=== PATIENT | male | born 1950 | race Caucasian/White ===

== ENCOUNTER → 2016-07-31 | Outpatient (CLI) | payer MEDICARE, OTHER | END | disposition home or self-care (01) | LOC: EDSTATUS 07:59 → LAB.O 16:00 → GT 16:00 | PROVIDERS: ATTEND Physical Medicine & Rehabilitation | DX: I50.9 Heart failure, unspecified (principal); I10 Essential (primary) hypertension; E11.9 Type 2 diabetes mellitus without complications; E63.9 Nutritional deficiency, unspecified; N19 Unspecified kidney failure ==

== ENCOUNTER → 2016-08-16 | Outpatient (CLI) | payer MEDICARE, OTHER | END | disposition home or self-care (01) | LOC: GMAJ 07:36 → GT 07:36 → EDSTATUS 14:33 | PROVIDERS: ATTEND Family Medicine | DX: E11.9 Type 2 diabetes mellitus without complications (principal); I50.9 Heart failure, unspecified; I69.898 Other sequelae of other cerebrovascular disease; I10 Essential (primary) hypertension ==

== ENCOUNTER → 2016-08-23 | Outpatient (CLI) | payer MEDICARE | END | disposition home or self-care (01) | LOC: GT 09:02 | PROVIDERS: ATTEND Family Medicine | DX: Z79.899 Other long term (current) drug therapy (principal) ==

== ENCOUNTER → 2016-08-27 | Outpatient (CLI) | payer MEDICARE | END | disposition home or self-care (01) | LOC: GMAJ 16:33 | PROVIDERS: ATTEND Family Medicine | DX: L03.311 Cellulitis of abdominal wall (principal); L02.93 Carbuncle, unspecified ==

== ENCOUNTER → 2016-10-11 | Outpatient (CLI) | payer MEDICARE | END | disposition home or self-care (01) | LOC: GT 07:41 | PROVIDERS: ATTEND Family Medicine | DX: E11.9 Type 2 diabetes mellitus without complications (principal); I10 Essential (primary) hypertension; I50.9 Heart failure, unspecified; I69.898 Other sequelae of other cerebrovascular disease ==

== ENCOUNTER → 2016-11-15 | Outpatient (CLI) | payer MEDICARE | END | disposition home or self-care (01) | LOC: GMAJ 08:18 | PROVIDERS: ATTEND Family Medicine | DX: I10 Essential (primary) hypertension (principal); E11.9 Type 2 diabetes mellitus without complications; I69.898 Other sequelae of other cerebrovascular disease; E56.8 Deficiency of other vitamins; E63.9 Nutritional deficiency, unspecified ==

== ENCOUNTER 2016-12-25 17:12 | Inpatient (IN) | payer MEDICARE ==
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
[2016-12-25] MEDS ORDERED: VANCOMYCIN HCL INJ 1,000 MG, VANCOMYCIN HCL INJ 250 MG in SODIUM CHLORIDE 0.9% 250ML 25... IVPB ONE (17:42)
[2016-12-25] MEDS ORDERED: VANCOMYCIN HCL INJ 500 MG VIAL ONE (18:04)
[2016-12-25] MEDS ORDERED: VANCOMYCIN HCL INJ 1,000 MG VIAL IVPB ONE (18:04)
[2016-12-25] MEDS ORDERED: SODIUM CHLORIDE 0.9% 250ML 250 ML ONE (18:05)
--- NOTE | 2016-12-25 18:13 | HP ---
SUPERVISING PHYSICIAN: Brendon Charles M.D. CHIEF COMPLAINT: Right foot and lower leg cellulitis. HISTORY OF PRESENT ILLNESS: Mr. Leslie is a 66 year-old male patient that resides at [facility]. He has a longstanding history of diabetes and past hospitalizations for cellulitis of the right lower extremity with a chronic ulcer to the right heel. He was seen in the clinic at [facility] today and referred to the Emergency Department secondary to worsening edema to the right lower extremity. In the Emergency Department, it was noted that he had edema up to just below the knee on the right leg with petechial hemorrhaging and erythema with the ulcer showing a chronic non-healing ulcer. He was last hospitalized for worsening cellulitis of the right leg in May of 2016. In the Emergency Room today, laboratory showed he had a normal white count of 8.1 with no left shift noted. Chemistries showed an elevated BUN and creatinine with creatinine 3.16. The patient does have a history of chronic renal failure. Given the extent of the cellulitis and the patient's underlying comorbidities and diabetes, Dr. Dejesus requested the patient be admitted for continuation of treatment with parenteral antibiotics and further wound management. The patient was admitted from the E. . to the Medical/Surgical floor in stable condition. PAST MEDICAL HISTORY: 1. Diabetes mellitus type 2 on oral therapy. 2. Chronic renal failure. 3. History of chronic non-healing ulcer to the right lower extremity with previous hospitalizations for worsening cellulitis. Last hospitalization in May of 2016. 4. Hypertension. 5. Coronary artery disease. 6. Congestive heart failure, undetermined etiology with no current echocardiogram available at time of admission. 7. History of gout. 8. Depression and anxiety. 9. Benign prostatic hypertrophy. 10. Past history of cerebrovascular accident. PAST SURGICAL HISTORY: Unknown as the patient has a poor recall of medical history. CURRENT MEDICATIONS: 1. Flomax 0.4 mg at bedtime. 2. Zoloft 25 mg daily. 3. Nutritional supplement Arginaid 1 packet twice daily. 4. Xanthene 0.005% ophthalmic drops 1 both eyes at bedtime. 5. B12 injections 1,000 mg monthly. 6. Plavix 75 mg daily. 7. Vitamin C 500 mg daily. 8. Metolazone 5 mg Friday, Friday and Friday. 9. Lisinopril 40 mg daily. 10. Zantac 75 mg daily. 11. Lactose 3,000 units 3 times a day. 12. Neurontin 400 mg 3 times a day. 13. Carvedilol 25 mg twice daily. 14. Multivitamin adult 1 tablet daily. 15. Lasix 80 mg daily. 16. Calcitriol 0.25 mcg daily. 17. Allopurinol 300 mg daily. 18. Glucotrol XL 5 mg daily. ALLERGIES: NSAIDs. FAMILY HISTORY: Unknown. SOCIAL HISTORY: The patient previously did smoke but has stopped for many years. He denies any alcohol or illicit drug use. He resides at [facility]. REVIEW OF SYSTEMS: Difficult to obtain secondary to the patient's inability to full recall his history. CONSTITUTIONAL: He denies any fever or chills. HEENT: Denies any headaches or syncopal episodes. RESPIRATORY: Denies any shortness of breath, cough. Does note that he has some difficulty swallowing at times, but denies any problems with aspiration. HEART: Denies any palpitations, syncopal episodes, chest pains, worsening shortness of breath. ABDOMEN: Denies any nausea, vomiting or constipation, or any other bowel habit changes. GENITOURINARY: Notes that he does have some incontinence but denies any dysuria , hematuria or other urinary symptoms. INTEGUMENT: Reports that he has a chronic rash irritation to his buttock secondary to his incontinence and sitting in a wheelchair most of the day, as well as noted on History of Present Illness, the right lower extremity cellulitis with the ulcer to the heel. NEUROLOGIC: Denies any syncopal episodes. Notes that he does have some peripheral neuropathy secondary to his diabetes. PHYSICAL EXAMINATION: VITAL SIGNS: On admission to the Medical/Surgical floor, temperature 97.0, pulse 60, blood pressure 170/80, respirations 18, satting 95% on room air. Admission weight 107.9 kg. GENERAL: The patient appears to be in no acute distress. He does appear to be somewhat dry but well nourished. He is very pleasant and alert and oriented times three. HEENT: Tympanic membranes were partially occluded by cerumen with a small amount of dried blood to the left ear from where he would scratch himself. He is noted to be edentulous. Oropharynx was pink with mucosal membranes being dry. There were no lesions. NECK: Supple, non-tender with full range of motion. No jugular venous distention noted. CHEST: Lungs are clear to auscultation, just diminished towards the bases posteriorly, but no wheezing or rhonchi. CARDIOVASCULAR: Regular rate and rhythm. No appreciable murmurs, gallops, or rubs. ABDOMEN: Obese, soft, non-tender. Positive bowel sounds. EXTREMITIES: Left lower extremity has no edema. Right extremity shows to be edematous at 2+ with erythema extending from just below the patellar area with petechial hemorrhaging noted down to the distal end of foot with no obvious open sores other than an obvious chronic heel ulceration that is black and very soft on palpation. No drainage at time of exam was noted. NEUROLOGIC: Cranial nerves II-XII are grossly intact. Facial features are symmetrical. Extraocular movements are within normal limits. There was no notable nystagmus. He is alert and oriented times three. LABORATORY: White count was 8.1, hemoglobin 11.2, hematocrit 33.9, platelet count 243,000. Differential showed to be within normal limits. Chemistries showed normal electrolytes with potassium 4.5, BUN was elevate at 94, creatinine was elevated at 3.16 with osmolality of 311. Hemoglobin A1c was 6.3. Liver functions showed to be within normal limits. BNP was 129. Urinalysis is pending. MICROBIOLOGY: Wound culture of the right heel is pending. Blood cultures are pending. RADIOLOGY: X-ray after admission to the Medical/Surgical floor of the right foot per radiology interpretation to review showed no acute fracture or dislocation of the right foot with a few soft tissue swelling without any subcutaneous air or gas evident. No radiographic evidence of osteomyelitis in the right foot per radiology interpretation. ASSESSMENT: 1. Worsening infection and ulceration of the right heel with increasing cellulitis extending from the foot up to the knee having failed to respond to outpatient treatment therapy and wound care now requiring more aggressive antibiotic therapy with parenteral antibiotics to include vancomycin with cultures pending complicated by diabetes mellitus type 2. 2. Diabetes mellitus type 2 on oral therapy with hemoglobin A1c of 6.3. 3. Acute on chronic renal failure with some exacerbation from diuretics requiring fluid management. 4. Right lower extremity edema with questionable underlying ischemic arterial disease versus deep venous thrombus with ultrasounds pending with the patient having been on Plavix. PLAN: The patient will be admitted for more aggressive wound management and initiation of parenteral antibiotics to include vancomycin per Pharmacy protocol. Will await culture results of the heel wound to further target antibiotic therapy. The patient does have a history of previously having Methicillin resistant Staphylococcus aureus in the same wound back in May. Will talk with Dr. Hensley in regards to possible need for debridement of the wound to the heel and to assist with ongoing wound management. Will start him on DVT prophylaxis as per protocol. Will await further studies of arterial and venous Doppler studies in the morning to further assess the lower extremity for possible DVT or arterial ischemic disease. Will keep his leg elevated. We will resume his home medications once they have been updated and verified in the electronic medical records. Will anticipate length of stay to be at least 3 to 5 days. Until discharge, will continue to monitor and treat appropriately. #[id number] [facility]
[2016-12-25] MEDS ORDERED: MAGNESIUM HYDROXIDE 30 ML UD PO PRN (18:52)
[2016-12-25] MEDS ORDERED: GLUCAGON INJ 1 MG VIAL SUBCU PRN (18:52)
[2016-12-25] MEDS ORDERED: ACETAMINOPHEN 325 MG TAB PO PRN (18:52)
[2016-12-25] MEDS ORDERED: MORPHINE SULFATE INJ 10 MG/ML VIAL IV PRN (18:52)
[2016-12-25] MEDS ORDERED: HYDROcodone 5MG/APAP 325MG 1 EA TAB PO PRN (18:52)
[2016-12-25] MEDS ORDERED: SODIUM CHLORIDE 0.9% (FLUSH) 10 ML SYG IV PRN (18:52)
[2016-12-25] MEDS ORDERED: DEXTROSE 50% 25 GM/50 ML SYG IV PRN (18:52)
[2016-12-25] MEDS ORDERED: ALUM & MAG HYDROX-SIMETHICONE 30 ML UD PO PRN (18:52)
[2016-12-25] MEDS ORDERED: VANCOMYCIN PER PHARMACY INJ SCH (19:00)
--- NOTE | 2016-12-25 19:24 | RAD ---
Procedure: XR FOOT 3 OR MORE VIEWS Exam Date: 12/25/2016 Ordering Provider: Jose Escalante NP Clinical Indication: cellulitis Comparison: May 03, 2016 FINDINGS: Diffuse demineralization of the bones. No acute fracture or dislocation. Diffuse soft tissue swelling. Vascular calcifications. No radiographic evidence of osteomyelitis in the right foot. Plantar calcaneal spur. No lytic or sclerotic lesions. No radiopaque foreign body. No subcutaneous gas evident. IMPRESSION: 1. No acute fracture or dislocation of the right foot. 2. Diffuse soft tissue swelling without subcutaneous gas evident. 3. No radiographic evidence of osteomyelitis in the right foot. Electronically signed by: Salomón Santos MD 12/25/2016 7:23 PM CDT
[2016-12-25] MEDS ORDERED: CYANOCOBALAMIN INJ 1,000 MCG/ML INJ IM SCH (20:30)
[2016-12-25] MEDS ORDERED: NON-FORMULARY MEDICATION 1 EA MIS (Carvedilol [Carvedilol] 25 MG) PO SCH (21:00)
--- NOTE | 2016-12-25 21:27 | US ---
EXAM DESCRIPTION: Venous,Lower Extremity RT CLINICAL HISTORY: 66 years Male cellulitis, RLE edema COMPARISON: None. TECHNIQUE: Duplex imaging performed to evaluate the right lower extremity venous structures. Compression imaging and augmentation imaging performed. The common femoral, superficial femoral, popliteal, greater saphenous and posterior tibial veins were examined. FINDINGS: No thrombus is identified in the right lower extremity venous structures. There is edema in the subcutaneous soft tissues. IMPRESSION: No DVT is identified in the right lower extremity. Subcutaneous edema Electronically signed by: Adriana Hamilton 12/25/2016 9:26 PM CDT
--- NOTE | 2016-12-25 21:31 | US ---
EXAM DESCRIPTION: Extremity,Lower RT Arteries CLINICAL HISTORY: 66 years Male cellulitis, RLE edema COMPARISON: None. TECHNIQUE: Duplex imaging performed to evaluate the right lower extremity arterial structures. FINDINGS: Common femoral velocity 136 cm/s with triphasic flow. Triphasic waveforms in the proximal and midportion of the superficial femoral artery. Normal velocities. The superficial femoral distally, popliteal and calf arteries are patent with normal arterial upstroke but monophasic flow. There is diffuse edema in the subcutaneous soft tissues. No evidence of stenosis. IMPRESSION: No evidence of arterial occlusion. Flow is seen to the ankle There is monophasic flow in the lower leg. This is a nonspecific finding and can be seen as a result of vasodilatation an inflammatory or infectious processes Electronically signed by: Adriana Hamilton 12/25/2016 9:29 PM CDT
[2016-12-25] MEDS ORDERED: CARVEDILOL 12.5 MG TAB ONE (21:59)
[2016-12-25] MEDS: GABAPENTIN 400 MG CAP PO SCH (22:05)
[2016-12-25] MEDS: TAMSULOSIN 0.4 MG CAP PO SCH (22:05)
[2016-12-25] MEDS: NYSTATIN POWDER 15GM BTTL TOP SCH (22:07)
[2016-12-25] MEDS: INSULIN LISPRO 100 UNITS/ML PEN SUBCU SCH (23:35)
[2016-12-25] MEDS: NUTRITIONAL SUPPLEMENTS PO SCH (23:39)
[2016-12-25] MEDS: LATANOPROST 0.005% OPTH SOL 2.5 ML BTTL BOTH_EYES SCH (23:40)
[2016-12-26] MEDS: RANITIDINE HCL 75 MG PO SCH ×2 (06:19→08:33)
[2016-12-26] MEDS: INSULIN LISPRO 100 UNITS/ML PEN SUBCU SCH ×4 (07:58→20:59)
[2016-12-26] MEDS: glipiZIDE EXTENDED REL (XL) 5 MG TAB PO SCH (08:06)
[2016-12-26] MEDS: LACTASE 3000 UNIT PO SCH ×3 (08:32→17:01)
[2016-12-26] MEDS: NYSTATIN POWDER 15GM BTTL TOP SCH ×4 (09:00→20:29)
[2016-12-26] MEDS: GABAPENTIN 400 MG CAP PO SCH ×2 (10:12→20:28)
[2016-12-26] MEDS: CARVEDILOL 12.5 MG TAB PO SCH ×2 (10:13→20:28)
[2016-12-26] MEDS: MULTIPLE VITAMINS W/ MINERALS 1 EA TAB PO SCH (10:13)
[2016-12-26] MEDS: SERTRALINE HCL 50 MG TAB PO SCH (10:13)
[2016-12-26] MEDS: ALLOPURINOL 300 MG TAB PO SCH (10:13)
[2016-12-26] MEDS: CALCITRIOL 0.25 MCG CAP PO SCH (10:14)
[2016-12-26] MEDS: ASCORBIC ACID 500 MG TAB PO SCH (10:14)
[2016-12-26] MEDS: CLOPIDOGREL 75 MG TAB PO SCH (10:14)
[2016-12-26] MEDS: LISINOPRIL 10 MG TAB PO SCH (10:14)
[2016-12-26] MEDS: SODIUM CHLORIDE 0.45% 1000ML 1,000 ML IVS PRN ×2 (10:17→18:25)
[2016-12-26] MEDS: NUTRITIONAL SUPPLEMENTS PO SCH ×2 (12:06→21:16)
--- NOTE | 2016-12-26 15:45 | PN ---
DATE: 12/26/16 SUPERVISING PHYSICIAN: Brett Pike M.D. SUBJECTIVE: The patient feels that his leg is a little better this morning. He remains afebrile. He has been in bed on bedrest with his leg elevated and once again reminded to not put any pressure on the heel. OBJECTIVE: VITAL SIGNS: He remains afebrile, T max 98.4, pulse 64, blood pressure 146/84, respirations 19, satting 95% on room air. I's and O's show a negative balance of 390 with 310 in, 700 out. He is incontinent of urine at times. CHEST: Clear to auscultation bilaterally, just diminished towards the bases. HEART: Regular rate and rhythm. ABDOMEN: Obese but soft, non-tender. Positive bowel sounds. EXTREMITIES: Right lower extremity shows just a trace of edema much improved from admission. Erythema now has receded from the foot and ankle, and just localized circumferentially around the mid part of the calf. The heel remains with a black area but no open lesions are noted. No drainage. NEUROLOGIC: He is alert and oriented times three. INTEGUMENT: As noted in his extremities above as well as he has some excoriation and erythema, redness to his buttocks area and coccyx secondary to incontinence and extended amount of time in a wheelchair showing some improvement after starting on Nystatin. LABORATORY: White count remains within normal limits at 6.8 with hemoglobin 10.3, hematocrit 31.8, platelet count 232,000. Differential shows to be within normal limits. Chemistries show normal electrolytes, potassium 4.0, BUN 88 which is down from admission at 94 as well as creatinine is down to 3.06 with admission creatinine being at 3.16. Glucoses have been well controlled between 99 and 109. Urinalysis showed greater than 300 protein with small amount of blood, otherwise within normal limits for specimen. Wound culture is pending. Blood cultures remain negative. RADIOLOGY: Lower extremity Doppler right leg per radiology interpretation shows no DVT identified. Arterial studies of the right lower extremity per radiology interpretation shows no evidence of arterial occlusion and flow was seen to the ankle. ASSESSMENT: 1. Cellulitis and ulceration of the right heel to the right lower extremity having failed to respond to outpatient treatment requiring initiation of parenteral antibiotics to include vancomycin with cultures pending with the patient showing good clinical response. 2. Diabetes mellitus type 2 on oral therapy well controlled with hemoglobin A1c of 6.3. 3. Right lower extremity edema with no DVT identified and good arterial flow as noted on Doppler studies with the patient having been on Plavix showing improvement after elevation of the leg and initiation of IV vancomycin. PLAN: Will continue with current plan of care at this time with vancomycin per Pharmacy protocol. The patient will remain on bedrest except for bedside commode. While in bed he will have his leg elevated and pressure off the heel. I did discuss the case with Dr. Hensley awaiting his input as to further management of the heel area. I will continue with wound management with Hibiclens and leg elevation. Until clinically improved, will continue to monitor the patient and treat appropriately. Once discharged, the patient can return back to [facility] and have close clinical followup with his primary care physician, Dr. Pike. #[id number] [facility]
[2016-12-26] MEDS ORDERED: GABAPENTIN 400 MG CAP ONE (19:49)
[2016-12-26] MEDS: TAMSULOSIN 0.4 MG CAP PO SCH (20:28)
[2016-12-26] MEDS: LATANOPROST 0.005% OPTH SOL 2.5 ML BTTL BOTH_EYES SCH (21:16)
[2016-12-27] MEDS: SODIUM CHLORIDE 0.45% 1000ML 1,000 ML IVS PRN ×3 (02:12→21:18)
[2016-12-27] MEDS ORDERED: VANCOMYCIN HCL INJ 500 MG VIAL ONE (05:51)
[2016-12-27] MEDS ORDERED: VANCOMYCIN HCL INJ 1,000 MG VIAL IVPB ONE (05:51)
[2016-12-27] MEDS ORDERED: SODIUM CHLORIDE 0.9% 250ML 250 ML ONE (05:51)
[2016-12-27] MEDS ORDERED: VANCOMYCIN HCL INJ 1,000 MG, VANCOMYCIN HCL INJ 250 MG in SODIUM CHLORIDE 0.9% 250ML 25... IVPB SCH (06:00)
[2016-12-27] MEDS ORDERED: CHLORHEXIDINE GLUCONATE 4 % 15 ML UD TOP ONE (06:23)
[2016-12-27] MEDS: SERTRALINE HCL 50 MG TAB PO SCH (08:54)
[2016-12-27] MEDS: glipiZIDE EXTENDED REL (XL) 5 MG TAB PO SCH (08:56)
[2016-12-27] MEDS: CARVEDILOL 12.5 MG TAB PO SCH ×2 (08:56→21:22)
[2016-12-27] MEDS: CALCITRIOL 0.25 MCG CAP PO SCH (08:56)
[2016-12-27] MEDS: ASCORBIC ACID 500 MG TAB PO SCH (08:56)
[2016-12-27] MEDS: CLOPIDOGREL 75 MG TAB PO SCH (08:56)
[2016-12-27] MEDS: ALLOPURINOL 300 MG TAB PO SCH (08:56)
[2016-12-27] MEDS: GABAPENTIN 400 MG CAP PO SCH ×2 (08:56→21:22)
[2016-12-27] MEDS: MULTIPLE VITAMINS W/ MINERALS 1 EA TAB PO SCH (08:56)
[2016-12-27] MEDS: LISINOPRIL 10 MG TAB PO SCH (08:56)
[2016-12-27] MEDS ORDERED: metOLazone 2.5 MG TAB PO SCH (09:00)
[2016-12-27] MEDS: INSULIN LISPRO 100 UNITS/ML PEN SUBCU SCH ×4 (09:56→21:23)
[2016-12-27] MEDS ORDERED: FUROSEMIDE 40 MG TAB PO ONE (14:28)
--- NOTE | 2016-12-27 14:37 | PN ---
SUPERVISING PHYSICIAN: Brett Pike MD DATE: 12/27/16 SUBJECTIVE: The patient is sitting up in his hospital bed. His leg is elevated. He states he feels some better this morning. He does complaint that he would like to get up out of the bed as well as he has a little bit of generalized itching. OBJECTIVE: VITAL SIGNS: Afebrile. Heart rate 60. Blood pressure 133/70. Respiratory rate 18. O2 saturation 96%. LUNGS: Clear to auscultation bilaterally, somewhat diminished. CARDIAC: Regular rate and rhythm. ABDOMEN: Soft, nontender, nondistended. Bowel sounds are positive. EXTREMITIES: Right lower extremity shows a trace of edema up to mid lower leg. He does have a dressing to his heel that is dry and intact. Erythema extends up to the upper portion of his lower leg, but it has receded from the initial markings on his leg. There are no open lesions noted. NEUROLOGIC: Awake, alert and oriented times three. INTEGUMENT: He does have some redness and excoriation to his buttocks area as well as his coccyx, most likely secondary to incontinence and his wheelchair bound status at the senior care. LABORATORY: Sodium 140, potassium 4.3, chloride 105, carbon dioxide 24, BUN 77 , creatinine 2.74. Glucose has run between 95 and 222. Preliminary wound culture shows gram positive cocci with his preliminary blood cultures showing no growth after 24 hours. All other labs and films have been reviewed via the EMR. ASSESSMENT: 1. Cellulitis and ulceration of the right heel to the right lower extremity having failed to respond to outpatient treatment requiring initiation of parenteral antibiotics to include vancomycin with cultures pending show gram positive cocci. 2. Diabetes mellitus, type 2, on oral therapy with hemoglobin A1c of 6.3. 3. Right lower extremity edema with no deep venous thrombosis identified and good arterial flow as noted on Doppler studies. The patient has been on Plavix and continues to improve clinically. PLAN: We will await sensitivities. He will be on vancomycin until those are resulted. He will need to continue to elevate his leg. We will continue present wound care management with elevation and Hibiclens baths. Benadryl prescribed for his itching and we will assist him to the recliner to help take pressure off of his buttocks. Until then, we will continue to monitor the patient closely and followup as needed. Dr. Pike is the collaborating physician and available for consultation. #[id number] [facility]
[2016-12-27] MEDS: LACTASE 3000 UNIT PO SCH ×3 (14:54→18:23)
[2016-12-27] MEDS: NUTRITIONAL SUPPLEMENTS PO SCH ×2 (14:54→22:54)
[2016-12-27] MEDS: NYSTATIN POWDER 15GM BTTL TOP SCH ×4 (15:00→20:30)
[2016-12-27] MEDS: diphenhydrAMINE HCL 25 MG CAP PO PRN (15:07)
[2016-12-27] MEDS: TAMSULOSIN 0.4 MG CAP PO SCH (21:22)
[2016-12-27] MEDS: LATANOPROST 0.005% OPTH SOL 2.5 ML BTTL BOTH_EYES SCH (22:54)
[2016-12-28] MEDS: SODIUM CHLORIDE 0.45% 1000ML 1,000 ML IVS PRN (05:44)
[2016-12-28] MEDS: INSULIN LISPRO 100 UNITS/ML PEN SUBCU SCH ×4 (06:51→20:54)
[2016-12-28] MEDS: LACTASE 3000 UNIT PO SCH ×3 (06:53→17:13)
[2016-12-28] MEDS: SERTRALINE HCL 50 MG TAB PO SCH (08:08)
[2016-12-28] MEDS: CARVEDILOL 12.5 MG TAB PO SCH ×2 (08:08→20:36)
[2016-12-28] MEDS: MULTIPLE VITAMINS W/ MINERALS 1 EA TAB PO SCH (08:09)
[2016-12-28] MEDS: GABAPENTIN 400 MG CAP PO SCH ×2 (08:09→20:36)
[2016-12-28] MEDS: ASCORBIC ACID 500 MG TAB PO SCH (08:09)
[2016-12-28] MEDS: glipiZIDE EXTENDED REL (XL) 5 MG TAB PO SCH (08:09)
[2016-12-28] MEDS: CLOPIDOGREL 75 MG TAB PO SCH (08:09)
[2016-12-28] MEDS: LISINOPRIL 10 MG TAB PO SCH (08:09)
[2016-12-28] MEDS: ALLOPURINOL 300 MG TAB PO SCH (08:09)
[2016-12-28] MEDS: CALCITRIOL 0.25 MCG CAP PO SCH (08:09)
[2016-12-28] MEDS: NUTRITIONAL SUPPLEMENTS PO SCH ×2 (08:52→20:41)
[2016-12-28] MEDS: diphenhydrAMINE HCL 25 MG CAP PO PRN (09:07)
[2016-12-28] MEDS: NYSTATIN POWDER 15GM BTTL TOP SCH ×4 (09:07→20:36)
[2016-12-28] MEDS: FUROSEMIDE 40 MG TAB PO SCH (13:25)
[2016-12-28] MEDS: SULFA/TRIMETH 800/160 (DS) TAB 1 EA TAB PO SCH (13:25)
[2016-12-28] MEDS: IV SET AND CAP CHANGE INJ INJ SCH ×2 (20:31→20:32)
[2016-12-28] MEDS: DOXYCYCLINE HYCLATE CAP 100 MG CAP PO SCH (20:36)
[2016-12-28] MEDS: TAMSULOSIN 0.4 MG CAP PO SCH (20:36)
[2016-12-28] MEDS: SODIUM CHLORIDE 0.9% (FLUSH) 10 ML SYG IV SCH (20:37)
[2016-12-28] MEDS: LATANOPROST 0.005% OPTH SOL 2.5 ML BTTL BOTH_EYES SCH (20:42)
[2016-12-29] MEDS: SULFA/TRIMETH 800/160 (DS) TAB 1 EA TAB PO SCH ×2 (00:23→11:38)
[2016-12-29] MEDS: INSULIN LISPRO 100 UNITS/ML PEN SUBCU SCH ×2 (07:10→11:33)
[2016-12-29] MEDS: glipiZIDE EXTENDED REL (XL) 5 MG TAB PO SCH (07:28)
[2016-12-29] MEDS: LACTASE 3000 UNIT PO SCH ×2 (07:28→11:42)
[2016-12-29] MEDS: CARVEDILOL 12.5 MG TAB PO SCH (08:14)
[2016-12-29] MEDS: MULTIPLE VITAMINS W/ MINERALS 1 EA TAB PO SCH (08:14)
[2016-12-29] MEDS: FUROSEMIDE 40 MG TAB PO SCH (08:14)
[2016-12-29] MEDS: GABAPENTIN 400 MG CAP PO SCH (08:15)
[2016-12-29] MEDS: CALCITRIOL 0.25 MCG CAP PO SCH (08:15)
[2016-12-29] MEDS: CLOPIDOGREL 75 MG TAB PO SCH (08:15)
[2016-12-29] MEDS: NYSTATIN POWDER 15GM BTTL TOP SCH ×2 (08:15→13:46)
[2016-12-29] MEDS: NUTRITIONAL SUPPLEMENTS PO SCH (08:15)
[2016-12-29] MEDS: LISINOPRIL 10 MG TAB PO SCH (08:15)
[2016-12-29] MEDS: SODIUM CHLORIDE 0.9% (FLUSH) 10 ML SYG IV SCH (08:15)
[2016-12-29] MEDS: ALLOPURINOL 300 MG TAB PO SCH (08:16)
[2016-12-29] MEDS: DOXYCYCLINE HYCLATE CAP 100 MG CAP PO SCH (08:16)
[2016-12-29] MEDS: ASCORBIC ACID 500 MG TAB PO SCH (08:16)
[2016-12-29] MEDS: SERTRALINE HCL 50 MG TAB PO SCH (08:16)
[2016-12-29 10:12] VITALS: BP 170/96; TEMP 96.8; O2SAT 94
--- NOTE | 2016-12-29 16:35 | DS ---
SUPERVISING PHYSICIAN: Brendon Charles M.D. DISCHARGE DIAGNOSIS: 1. Cellulitis and ulceration of the right heel to the right lower extremity having failed to respond to outpatient treatment requiring initiation of parenteral antibiotics to include vancomycin. Cultures showing MRSA and recently switched to Bactrim and doxycycline based on sensitivities from culture. 2. Diabetes mellitus type 2 on oral therapy with hemoglobin A1c of 6.3. 3. Right lower extremity edema with no DVT identified and good arterial flow is noted per Doppler study. The patient is on Plavix. HISTORY OF PRESENT ILLNESS: This is a 66 year-old male patient who is a resident of [facility]. He has a longstanding history of diabetes and past hospitalizations for cellulitis of the right lower extremity. He has a chronic ulcer to the right heel. He was seen at [facility] today and referred to the Emergency Department secondary to worsening edema to the right lower extremity. In the E. R., it was noted that his edema had extended up to just below the knee on the right leg with petechial hemorrhaging and erythema, and the ulcer showing a chronic non-healing ulcer. He was last hospitalized for worsening cellulitis of the right leg in May of 2016. In the Emergency Room, his white count was normal at 8.1 and there was no left shift. Chemistries showed an elevated BUN and creatinine with creatinine of 3.6. He does have a history of chronic renal failure and his baseline creatinine is about 2.5. Today, his creatinine is 2.66. The patient was given fluids as well as vancomycin. Culture was done of the heel wound. Venous Doppler study was ordered to assess for possible DVT or arterial ischemic disease. His Doppler per radiology interpretation showed no DVT of the right lower extremity. His foot x-ray showed no acute fracture or dislocation, and diffuse soft tissue swelling without subcutaneous gas evident and no radiographic evidence of osteomyelitis in the right foot. His A1c was 6.3. His cultures came back and showed positive for MRSA. He was switched to Bactrim and doxycycline yesterday. He has kept his foot elevated and his vital signs have stabilized. He can be discharged today to [facility]. DISCHARGE PLAN: The patient will be discharged to [facility] in stable condition. He is to continue 14 days of doxycycline as well as Bactrim antibiotic therapy. He will be discharged on his previous home medications plus Bactrim and doxycycline to do daily wound care by showering with Hibiclens and dressing with 4 x 4s and Kerlix loosely. He is to keep his foot elevated as much as possible. He will have a followup appointment with Dr. Pike in 1 to 2 weeks. He is to return to the hospital or call Dr. Pike' office for any further complications or questions. His renal function is almost at baseline. Maybe consider with his renal function that he be taken off his Antonio inhibitor at some point due to his worsening renal function, but I will leave that to Dr. Pike. DISCHARGE MEDICATIONS: 1. Lisinopril. 2. Gabapentin. 3. Carvedilol. 4. Glipizide. 5. Tamsulosin. 6. Cyanocobalamin. 7. Ranitidine. 8. Calcitrol. 9. Ascorbic acid. 10. Multivitamins. 11. Furosemide. 12. Arginaid. 13. Allopurinol. 14. Sertraline. 15. Plavix. 16. Lactase. 17. Xalatan ophthalmic. 18. Metolazone. 19. Doxycycline. 20. Nystatin. 21. Bactrim DS. Dr. Charles is the collaborating physician and available for consultation. #[id number] [facility]
== END 2016-12-29 14:05 | DRG 603 ==
LOC: ER 17:12 → MS 18:09
PROVIDERS: ADMIT Nurse Practitioner Family; ATTEND Nurse Practitioner Acute Care
DX: L03.115 Cellulitis of right lower limb (principal); L97.419 Non-pressure chronic ulcer of right heel and midfoot with unspecified severity; N17.9 Acute kidney failure, unspecified; I13.0 Hypertensive heart and chronic kidney disease with heart failure and stage 1 through stage 4 chronic kidney disease, or unspecified chronic kidney disease; E11.621 Type 2 diabetes mellitus with foot ulcer; B95.62 Methicillin resistant Staphylococcus aureus infection as the cause of diseases classified elsewhere; E11.22 Type 2 diabetes mellitus with diabetic chronic kidney disease; N18.9 Chronic kidney disease, unspecified; T50.2X5A Adverse effect of carbonic-anhydrase inhibitors, benzothiadiazides and other diuretics, initial encounter; R32 Unspecified urinary incontinence; I25.10 Atherosclerotic heart disease of native coronary artery without angina pectoris; I50.9 Heart failure, unspecified; M10.9 Gout, unspecified; F32.9 Major depressive disorder, single episode, unspecified; F41.9 Anxiety disorder, unspecified; N40.0 Benign prostatic hyperplasia without lower urinary tract symptoms; E66.9 Obesity, unspecified; Z79.84 Long term (current) use of oral hypoglycemic drugs; Z86.73 Personal history of transient ischemic attack (TIA), and cerebral infarction without residual deficits; Z79.899 Other long term (current) drug therapy; Z79.02 Long term (current) use of antithrombotics/antiplatelets; Z88.6 Allergy status to analgesic agent; Z87.891 Personal history of nicotine dependence; Y92.009 Unspecified place in unspecified non-institutional (private) residence as the place of occurrence of the external cause; Z68.36 Body mass index [BMI] 36.0-36.9, adult

== ENCOUNTER → 2017-02-12 | Outpatient (CLI) | payer MEDICARE, MEDICAID | END | disposition home or self-care (01) | LOC: GT 06:34 | PROVIDERS: ATTEND Family Medicine | DX: I50.9 Heart failure, unspecified (principal); R27.8 Other lack of coordination; I10 Essential (primary) hypertension; E11.9 Type 2 diabetes mellitus without complications | CPT/HCPCS: 36415; 80048; 80061; 80076; 82607; 82728; 83036; 83540; 83550; 83735; 83970; 84100; 84550; 85025; P9603 ==

== ENCOUNTER → 2017-03-12 | Outpatient (CLI) | payer MEDICARE | END | disposition home or self-care (01) | LOC: GT 06:22 | PROVIDERS: ATTEND Family Medicine | DX: I10 Essential (primary) hypertension (principal) ==

== ENCOUNTER 2017-04-04 15:07 | Emergency (ER) | payer MEDICARE ==
[2017-04-04] MEDS ORDERED: ONDANSETRON INJ 4 MG/2 ML VIAL IV ONE (15:21)
[2017-04-04] MEDS ORDERED: SODIUM CHLORIDE 0.9% 1000ML 1,000 ML IVS ONE ×2 (15:21→16:47)
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
[2017-04-04] MEDS ORDERED: PROMETHAZINE HCL INJ 25 MG in SODIUM CHLORIDE 0.9% 50ML 50 ML IVPB ONE (16:47)
[2017-04-04] MEDS ORDERED: PROMETHAZINE HCL INJ 25 MG/ML VIAL ONE (16:53)
[2017-04-04] MEDS ORDERED: SODIUM CHLORIDE 0.9% 50ML 50 ML ONE (16:53)
[2017-04-04 18:23] VITALS: O2SAT 96
[2017-04-04] MEDS ORDERED: ONDANSETRON ODT (ER DISP) 8 MG TAB PO ONE (19:01)
[2017-04-04 19:52] VITALS: BP 164/88
[2017-04-04 19:53] VITALS: TEMP 97.9
== END 2017-04-04 20:29 ==
LOC: ER 15:07
DX: K52.9 Noninfective gastroenteritis and colitis, unspecified (principal); E86.0 Dehydration; N17.9 Acute kidney failure, unspecified; N18.9 Chronic kidney disease, unspecified; K21.9 Gastro-esophageal reflux disease without esophagitis; E11.22 Type 2 diabetes mellitus with diabetic chronic kidney disease; Z86.73 Personal history of transient ischemic attack (TIA), and cerebral infarction without residual deficits; Z79.899 Other long term (current) drug therapy
CPT/HCPCS: 36415; 80053; 82009; 82150; 83690; 85025; 96361; 96365; 96375; 99284; A4216; J2405; J2550; J7030

== ENCOUNTER → 2017-04-04 | Outpatient (CLI) | payer MEDICARE | END | disposition home or self-care (01) | LOC: LAB.O 07:28 | PROVIDERS: ATTEND Nurse Practitioner Family | DX: I10 Essential (primary) hypertension (principal) ==

== ENCOUNTER → 2017-04-09 | Outpatient (CLI) | payer MEDICARE | END | disposition home or self-care (01) | LOC: GT 06:20 | PROVIDERS: ATTEND Family Medicine | DX: E56.8 Deficiency of other vitamins (principal); I10 Essential (primary) hypertension | CPT/HCPCS: 36415; 85025; P9603 ==

== ENCOUNTER 2017-04-10 13:44 | Emergency (ER) | payer MEDICARE ==
--- NOTE | 2017-04-10 14:08 | CT ---
EXAM DESCRIPTION: Abdoment/Pelvis w/o Contrast CLINICAL HISTORY: 67 years Male, NAUSEA AND VOMITING COMPARISON: None. TECHNIQUE: Transaxial images were obtained without intravenous or oral contrast media. Sagittal and coronal reconstruction was performed.This exam was performed according to our departmental dose-optimization program, which includes automated exposure control, adjustment of the mA and/or kV according to patient size and/or use of iterative reconstruction technique. FINDINGS: The lung bases are free of infiltrate or effusion. A calcified granulomas observed in the right middle lobe. The liver and spleen are unremarkable. Numerous calcified granulomas are seen in the spleen. Multiple gallstones are identified in the gallbladder. No biliary ductal dilatation is observed. No adrenal masses are detected. The pancreas is normal in appearance. Imaging of the kidneys reveals no evidence of hydronephrosis mass cyst or calcification. Calcific atherosclerotic changes observed in the abdominal aorta without evidence of aneurysmal dilatation. The changes are observed in the lower lumbar spine. An old compression injury of L2 is observed. No inguinal region abnormality is seen. Diverticulosis of the distal colon is observed without evidence of diverticulitis. The appendix is identified and is normal in appearance. IMPRESSION: 1. Cholelithiasis. 2. Uncomplicated diverticulosis Electronically signed by: Luis Miguel Case MD 04/10/2017 2:06 PM TELEVISION ANALYZER
[2017-04-10 14:09] VITALS: TEMP 99.1
[2017-04-10] MEDS ORDERED: ONDANSETRON INJ 4 MG/2 ML VIAL IV ONE (14:12)
[2017-04-10] MEDS ORDERED: SODIUM CHLORIDE 0.9% 1000ML 1,000 ML IVS ONE (14:12)
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
--- NOTE | 2017-04-10 14:59 | RAD ---
EXAM DESCRIPTION: Chest,2 Views CLINICAL HISTORY: 67 years Male, Decreased breath sounds @ bases COMPARISON: 27 June 2014 TECHNIQUE: PA/lateral FINDINGS: Mild chronic elevation of left hemidiaphragm is observed. Minimal subsegmental atelectasis is observed above the left hemidiaphragm. The right chest is free of acute infiltrate. The heart is within range of normal. No pleural fluid is seen. 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 I see no acute parenchymal pathology. Electronically signed by: Luis Miguel Case MD 04/10/2017 2:58 PM CNA INSTRUCTOR
[2017-04-10] MEDS ORDERED: LISINOPRIL 10 MG TAB PO ONE (15:05)
[2017-04-10 15:07] VITALS: O2SAT 93
[2017-04-10 19:30] VITALS: BP 158/88
== END 2017-04-10 17:20 ==
LOC: ER 13:44
DX: K80.20 Calculus of gallbladder without cholecystitis without obstruction (principal); K57.30 Diverticulosis of large intestine without perforation or abscess without bleeding; E86.0 Dehydration; R11.14 Bilious vomiting; N28.9 Disorder of kidney and ureter, unspecified; I50.9 Heart failure, unspecified; E11.9 Type 2 diabetes mellitus without complications; K21.9 Gastro-esophageal reflux disease without esophagitis; Z86.73 Personal history of transient ischemic attack (TIA), and cerebral infarction without residual deficits
CPT/HCPCS: 71020; 80053; 85025; J2405; J7030

== ENCOUNTER → 2017-04-16 | Outpatient (CLI) | payer MEDICARE, OTHER ==
--- NOTE | 2017-04-16 14:20 | US ---
EXAM DESCRIPTION: Abdomen,Complete CLINICAL HISTORY: CALCULUS OF GALLBLADDER COMPARISON: CT the abdomen dated 10 April 2017 TECHNIQUE: Complete abdominal ultrasound FINDINGS: The liver is normal in appearance. There is no focal hepatic mass. Multiple gallstones are identified in the gallbladder. No wall thickening is identified. The common bile duct is normal in caliber measuring 4.2 mm. Portions of the pancreas seen appear normal. The spleen is normal in appearance. The kidneys are normal in size, shape, and echotexture. The IVC and the proximal aorta are unremarkable. IMPRESSION: 1. Cholelithiasis without evidence of cholecystitis Electronically signed by: Luis Miguel Case MD 04/16/2017 2:19 PM [facility]
== END | disposition home or self-care (01) ==
LOC: US 12:12
PROVIDERS: ATTEND Family Medicine
DX: K80.20 Calculus of gallbladder without cholecystitis without obstruction (principal)

== ENCOUNTER → 2017-04-23 | Outpatient (CLI) | payer MEDICARE, OTHER | END | disposition home or self-care (01) | LOC: GT 06:01 | PROVIDERS: ATTEND Family Medicine | DX: E56.8 Deficiency of other vitamins (principal) | CPT/HCPCS: 36415; 85025; P9603 ==

== ENCOUNTER → 2017-05-02 | Outpatient (CLI) | payer MEDICARE | END | disposition home or self-care (01) | LOC: GT 06:47 | PROVIDERS: ATTEND Family Medicine | DX: D50.9 Iron deficiency anemia, unspecified (principal); I13.0 Hypertensive heart and chronic kidney disease with heart failure and stage 1 through stage 4 chronic kidney disease, or unspecified chronic kidney disease; I50.9 Heart failure, unspecified; N18.9 Chronic kidney disease, unspecified; E11.9 Type 2 diabetes mellitus without complications; E53.8 Deficiency of other specified B group vitamins; I69.898 Other sequelae of other cerebrovascular disease ==

== ENCOUNTER → 2017-05-15 | Outpatient (CLI) | payer MEDICARE, OTHER ==
--- NOTE | 2017-05-15 17:21 | NM ---
EXAM DESCRIPTION: Hepatobiliary w/CCK CLINICAL HISTORY: 59-year-old, male, cholelithiasis. COMPARISON: Ultrasound abdomen dated April 16, 2017 TECHNIQUE: Routine hepatobiliary scan was performed following intravenous administration of 8.02 mCi technetium 99m methylphenidate. Sincalide was used to stimulate gallbladder contraction. FINDINGS: Hepatobiliary scan shows prompt accumulation of the radiopharmaceutical within the liver and excretion into the biliary ductal system and small bowel. Gallbladder ejection fraction is assessed over 30 min during gallbladder stimulation. Symptoms were not duplicated. Gallbladder ejection fraction at 30 min is measured at 98% (Normal > 35%). IMPRESSION: 1. Visualization of the gallbladder essentially excludes acute cholecystitis. 2. Normal gallbladder ejection fraction at 90% (normal range is greater than 35%). 3. Symptoms were not duplicated during gallbladder stimulation. Electronically signed by: Luis Miguel Nj MD 05/15/2017 5:20 PM [facility]
== END | disposition home or self-care (01) ==
LOC: NM 08:07
PROVIDERS: ATTEND Family Medicine
DX: K80.20 Calculus of gallbladder without cholecystitis without obstruction (principal)
CPT/HCPCS: 78227; A9537

== ENCOUNTER → 2017-05-16 | Outpatient (CLI) | payer MEDICARE, OTHER | LOC: GT 07:55 | PROVIDERS: ATTEND Family Medicine | DX: I10 Essential (primary) hypertension (principal); I50.9 Heart failure, unspecified; E11.9 Type 2 diabetes mellitus without complications; D50.9 Iron deficiency anemia, unspecified; N18.9 Chronic kidney disease, unspecified; I69.898 Other sequelae of other cerebrovascular disease ==

== ENCOUNTER → 2017-05-23 | Outpatient (CLI) | payer MEDICARE | END | disposition home or self-care (01) | LOC: GT 09:49 | PROVIDERS: ATTEND Family Medicine | DX: J11.2 Influenza due to unidentified influenza virus with gastrointestinal manifestations (principal) ==

== ENCOUNTER 2017-06-18 14:15 | Emergency (ER) | payer MEDICARE, OTHER ==
[2017-06-18] MEDS ORDERED: SODIUM CHLORIDE 0.9% 1000ML 1,000 ML ONE (14:34)
[2017-06-18] MEDS ORDERED: SODIUM CHLORIDE 0.9% 500ML 500 ML IVS ONE (14:38)
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
--- NOTE | 2017-06-18 15:13 | RAD ---
EXAM DESCRIPTION: Chest,1 View CLINICAL HISTORY: 67 years Male, weak COMPARISON: April 10, 2017 TECHNIQUE: AP portable chest. FINDINGS: Single view of the chest demonstrates poor inspiration. Crowded basilar markings and a developing basilar atelectasis or patchy basilar bronchopneumonia is evident. Central pulmonary vessels are more prominent and this may very well be related to early cardiac decompensation. Significant pleural effusions or dense peripheral consolidation is not apparent. Aorta is tortuous and at least mild cardiomegaly is evident. IMPRESSION: Abnormal chest with poor inspiration and increased central vascular markings. There is either early developing basilar atelectasis or infiltrate or early edema. Electronically signed by: Harvey Pacheco MD 06/18/2017 3:12 PM [facility]
[2017-06-18] MEDS ORDERED: SODIUM CHLORIDE 0.9% 1000ML 1,000 ML IVS PRN (15:31)
--- NOTE | 2017-06-18 16:51 | CT ---
PROCEDURE: Abdoment/Pelvis w/o Contrast HISTORY: low blood pressure/renal failure /elevated lft Indication: Same as above Comparison: 04/10/2017 Technique: CT of the abdomen and pelvis was done without intravenous contrast. Images were obtained from the lung base to the level of the pubic symphysis in axial plane, followed by orthogonal sagittal and coronal reconstruction. Oral contrast was not given for the study. This exam was performed according to our departmental dose-optimization program, which includes automated exposure control, adjustment of the mA and/or KV according to the patient's size and/or use of iterative reconstruction technique. FINDINGS: Images through the lung bases show mild left basilar infiltrate/atelectasis. There is cholelithiasis in a moderately distended gallbladder with presence of gallbladder wall thickening, which may be due to superimposed acute cholecystitis The liver, pancreas, spleen and the bilateral adrenal glands appear unremarkable, given the limitation of lack of intravenous contrast. The bilateral kidneys do not show any evidence of hydronephrosis or nephrolithiasis. The bilateral ureters and the bilateral periureteral soft tissues and fat planes are unremarkable. The urinary bladder is decompressed by a presence of a Bar catheter. The prostate is mildly enlarged The small bowel appears unremarkable, without any evidence of small bowel obstruction or bowel wall thickening. There is no CT evidence of acute appendicitis, pericecal inflammatory change or ileocecal mesenteric adenitis. The ileocecal junction appears unremarkable. There is no CT evidence of acute colonic diverticulitis or colitis or large bowel obstruction. There is no pathological lymphadenopathy in the retroperitoneum or in the pelvic region. There is no evidence of free fluid or free air in the abdomen or the pelvic region. There is no clinically significant abdominal aortic aneurysm. There is no clinically significant inguinal or ventral hernia. There is moderate size compression deformity of the L2 vertebra, unchanged since 04/10/2017 The paravertebral soft tissues are unremarkable. The remainder of the pelvic structures are unremarkable. IMPRESSION: Images through the lung bases show mild left basilar infiltrate/atelectasis. There is cholelithiasis in a moderately distended gallbladder with presence of gallbladder wall thickening, which may be due to superimposed acute cholecystitis There is moderate size compression deformity of the L2 vertebra, unchanged since 04/10/2017 Electronically signed by: Behzad Hubbard MD 06/18/2017 4:49 PM [facility] Workstation: [id number]
[2017-06-18] MEDS ORDERED: PIPERACILLIN/TAZOBACTAM 3.375 GM in SODIUM CHLORIDE 0.9% 100ML 100 ML IVPB ONE (17:14)
[2017-06-18] MEDS ORDERED: PIPERACILLIN/TAZOBACTAM 3.375 GM VIAL IVPB ONE (17:29)
[2017-06-18] MEDS ORDERED: SODIUM CHLORIDE 0.9% 100ML 100 ML IVPB ONE (17:29)
[2017-06-18 17:48] VITALS: TEMP 98.7
[2017-06-18 18:06] VITALS: BP 100/47; O2SAT 93
== END 2017-06-18 18:05 | disposition short-term general hospital (02) ==
LOC: ER 14:15
DX: A41.9 Sepsis, unspecified organism (principal); I95.89 Other hypotension; K80.00 Calculus of gallbladder with acute cholecystitis without obstruction; N17.9 Acute kidney failure, unspecified; E11.69 Type 2 diabetes mellitus with other specified complication; I45.10 Unspecified right bundle-branch block; Z86.14 Personal history of Methicillin resistant Staphylococcus aureus infection; I50.9 Heart failure, unspecified; Z79.899 Other long term (current) drug therapy
CPT/HCPCS: 36415; 71045; 74176; 80048; 80076; 81001; 82550; 82553; 83605; 84484; 85025; 85610; 85730; 87040; 87502; 93005; J2543; J7030; J7050